=== PATIENT | female | born 1945 | race Caucasian/White ===

== ENCOUNTER 2019-11-27 09:07 | Day surgery (SDC) | payer OTHER ==
[~2019-11-27 09:07] MED LIST: ASPIR 8181 MG PO; AYR SALINE NS; CIPRO500 MG PO; Cozaar PO; DICY20TA PO; FENOFIBRATE160 MG PO; FLAGYL500MG PO; FOLIC ACID1 MG PO; Flonase 50MCG NS; INTESTINEX1 CA1 PO; METFORMIN HCL850 MG PO; OSTERA TABLET1 EACH PO; POLY119PG PO; PROTONIX40 M1 PO; SIMVASTATIN10 MG PO; SYNTHROID137 MCG PO; Synthroid PO; TOPROL XL25 M1 PO; Toprol Xl 25MG TAB PO; ULTRACET PO
== END 2019-11-27 13:25 | disposition home or self-care (01) ==
LOC: AMB-ENDOS 09:07 → ADM 13:15 → AMB-ENDOS 13:15
DX: K57.32 Diverticulitis of large intestine without perforation or abscess without bleeding (principal); K64.8 Other hemorrhoids